=== PATIENT | female | born 1990 | race Caucasian/White ===

== ENCOUNTER 2022-12-21 11:57 | Inpatient (IN) | payer MEDICAID, OTHER ==
[2022-12-21] MEDS ORDERED: MAG HYDROX/AL HYDROX/SIMETH 30 ML CUP PO PRN (12:15)
[2022-12-21] MEDS ORDERED: MAGNESIUM HYDROXIDE 2,400 MG/10 ML CUP PO PRN (12:15)
[2022-12-21] MEDS ORDERED: OLANZapine 10 MG VIAL IM PRN (12:27)
[2022-12-21] MEDS ORDERED: hydrOXYzine HCL 50 MG/ML 1 ML VIAL IM PRN (12:28)
[2022-12-21] MEDS: hydrOXYzine pamoate 25 MG CAP PO PRN ×2 (15:41→20:46)
[2022-12-21] MEDS: chlordiazePOXIDE 25 MG CAP PO PRN ×2 (15:41→23:25)
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
[2022-12-21] MEDS: NICOTINE 14MG/24HR PATCH TRANSDERM SCH (16:48)
[2022-12-21] MEDS: risperiDONE 2 MG TAB PO SCH (20:47)
[2022-12-22] MEDS ORDERED: chlordiazePOXIDE 25 MG CAP PO PRN ×2 (01:47)
--- NOTE | 2022-12-22 01:52 | P.MDCNMH ---
History of Present Illness H&P Date: 12/21/22 Chief Complaint: medical evaluation 32 year old female with alcohol dependance she is coming in for evaluation due to suicidal ideation , she admits to alcohol dependance and abuse, last drink was before coming to the hospital yesterday. she reports feeling shaky and going through alcohol withdrawal , she drinks a pint of liquor daily . she reports history of depression and anxiety. she lives with her boyfriend at a motel , and spends the whole day drinking as she has nothing else to do . he denies any medical concerns , no fever, chills, cough, shortness of breath, chest pain , nausea vomiting, or abd pain , denies any changes in bowel or urinary habits. she admits to tobacco smoking ,denies drugs Review of Systems Pertinent positives as noted in HPI. All other systems were reviewed and are negative Past Medical History Past Medical History: No Reported History History of Any Multi-Drug Resistant Organisms: None Reported Additional Past Surgical History / Comment(s): pt states she has surgery by her navel for "twisted ovaries" Past Anesthesia/Blood Transfusion Reactions: No Reported Reaction Smoking Status: Current every day smoker Medications and Allergies Allergies Allergy/AdvReac Type Severity Reaction Status Date / Time No Known Allergies Allergy Verified 12/21/22 12:07 Physical Exam Vitals: Vital Signs Temp Pulse Resp BP Pulse Ox 12/21/22 14:28 97.7 F 88 18 138/78 99 Intake and Output 12/21/22 12/21/22 12/22/22 14:59 22:59 06:59 Other: Weight 80.739 kg Constitutional: No acute distress, conversant, Eyes: Anicteric sclerae, moist conjunctiva, Pupils equal round reactive to light ENMT: NC/AT Oropharynx clear, no erythema, or exudates Neck: Supple, no masses, or JVD No carotid bruits No thyromegaly Lungs: Clear to auscultation Clear to percussion Normal respiratory effort, no accessory muscle use Cardiovascular: Heart regular in rate and rhythm, No murmurs, gallops, or rubs No peripheral edema Abdominal: Soft Nontender, no guarding, rebound or rigidity Abdomen moving with respiration Normoactive bowel sounds No palpable mass Skin: Normal temperature, tone, texture, turgor Extremities: No digital cyanosis No clubbing Pedal pulses intact and symmetrical Radial pulses intact and symmetrical No calf tenderness Psychiatric: Alert and oriented to person, place and time Neuro Muscles Strength 5/5 in all 4 extremities Sensation to light touch grossly present throughout Cranial nerves II-XII grossly intact Lymphatics: no palpable cervical or supraclavicular lymph nodes Cranial Nerve Examination - Cranial Nerves Cranial Nerve II- Optic: Intact Cranial Nerve III- Oculomotor: Intact Cranial Nerve IV- Trochlear: Intact Cranial Nerve V- Trigeminal: Intact Cranial Nerve - Abducens: Intact Cranial Nerve VII- Facial: Intact Cranial Nerve VIII- Auditory: Intact Cranial Nerve IX- Glossopharyngeal: Intact Cranial Nerve X- Vagus: Intact Cranial Nerve XI- Accessory: Intact Cranial Nerve XII- Hypoglossal: Intact Assessment and Plan Assessment: alcohol dependance alcohol withdrawal librium per CIWA thiamine daily po alcohol withdrawal precautions depression and suicidal ideation management per psych follow up blood work thank you for this consultation
[2022-12-22] MEDS: hydrOXYzine pamoate 25 MG CAP PO PRN ×2 (07:46→20:22)
[2022-12-22] MEDS: THIAMINE 100 MG TAB PO SCH (07:47)
[2022-12-22] MEDS: FOLIC ACID 1 MG TAB PO SCH (07:47)
[2022-12-22] MEDS: OLANZapine 5 MG TAB PO PRN (07:47)
[2022-12-22 07:53] LABS: Basophils # (A) 0.1 k/uL (0-0.2); Basophils % (A) 1 %; Eosinophils # (A) 0.2 k/uL (0-0.7); Eosinophils % (A) 4 %; HCT 39.6 % (34.0-46.0); Lymphocytes # (A) 1.3 k/uL (1.0-4.8); Lymphocytes % (A) 26 %; MCH 34.9 pg (25.0-35.0); MCV 105.8 fL (80.0-100.0); Macrocytosis Slight; Mean Platelet Volume 6.8; Monocytes # (A) 0.7 k/uL (0-1.0); Monocytes % (A) 13 %; Neutrophils # (A) 2.7 k/uL (1.3-7.7); Neutrophils % (A) 54 %; Platelet Count 299 k/uL (150-450); RBC 3.74 m/uL (3.80-5.40); RDW 12.1 % (11.5-15.5)
[2022-12-22 08:39] LABS: ALT 22 U/L (4-34); AST 31 U/L (14-36); African American GFR (CKD) >90 (>60 ml/min/1.73 sqM); Albumin 3.5 g/dL (3.5-5.0); Alkaline Phosphatase 51 U/L (38-126); Anion Gap 4 mmol/L; Blood Urea Nitrogen 13 mg/dL (7-17); Calcium 8.7 mg/dL (8.4-10.2); Carbon Dioxide 28 mmol/L (22-30); Chloride 104 mmol/L (98-107); Glucose 79 mg/dL (74-99); Non-African American GFR(CKD) >90 (>60 ml/min/1.73 sqM); Potassium 4.4 mmol/L (3.5-5.1); Sodium 136 mmol/L (137-145); Total Bilirubin 0.7 mg/dL (0.2-1.3); Total Protein 6.2 g/dL (6.3-8.2)
[2022-12-22] MEDS ORDERED: NICOTINE 14MG/24HR PATCH TRANSDERM SCH (09:00)
[2022-12-22] MEDS: NICOTINE 14MG/24HR PATCH TRANSDERM SCH (09:49)
[2022-12-22] MEDS: chlordiazePOXIDE 25 MG CAP PO PRN ×4 (10:50→22:29)
--- NOTE | 2022-12-22 11:07 | P.PN ---
Progress Note - Text Progress Note Date: 12/22/22 S&O: Patient was seen in rounds. She said she took her medicine yesterday which is risperidone 2 mg at bedtime and feels better today. She said she had to take some sleeping medicine last night. She said she has some muscle pain on her left thigh and thinks it is from sleeping on one side for long time. She denies any adverse effect from Risperdal. She said her boyfriend is going to [place] today to visit his grandparents for the weekend. She does not have any particular complaint or concerns. She socializes with other patients and attends groups. This is a white ambulatory female with good hygiene. She is polite fairly cheerful and cooperative. Does not have any psychomotor agitation or retardation. Speech is spontaneous relevant and goal-directed. Mood is fairly cheerful and affect is appropriate. Denies hallucinations, delusional thinking, suicidal and homicidal thoughts. Her sensorium is clear. A&P: Continue risperidone 2 mg at bedtime and other when necessary medications, continue therapies.
[2022-12-22] MEDS: NICOTINE GUM (POLACRILEX) 2 MG GUM BUCCAL PRN (17:23)
[2022-12-22] MEDS: risperiDONE 2 MG TAB PO SCH (20:22)
[2022-12-22] MEDS: ACETAMINOPHEN TAB 325 MG TAB PO PRN (22:29)
[2022-12-23] MEDS: hydrOXYzine pamoate 25 MG CAP PO PRN ×2 (00:44→20:55)
[2022-12-23] MEDS: chlordiazePOXIDE 25 MG CAP PO PRN ×4 (00:44→23:58)
[2022-12-23] MEDS: OLANZapine 5 MG TAB PO PRN ×2 (04:24→23:59)
[2022-12-23] MEDS: NICOTINE 14MG/24HR PATCH TRANSDERM SCH (06:08)
[2022-12-23] MEDS: FOLIC ACID 1 MG TAB PO SCH (11:07)
[2022-12-23] MEDS: THIAMINE 100 MG TAB PO SCH (11:48)
--- NOTE | 2022-12-23 15:39 | P.PN ---
Subjective Progress Note Date: 12/23/22 Principal diagnosis: Bipolar 2 Polysubstance use Subjective the patient says that there are many people in her family who have clear manic episodes and depression. She says she herself has episodes that are manic with decreased need for sleep increased talking impulsive project beginning excessive inappropriate spending and talk etc. She is on risperidone and tolerated it well as it might be slowing her down slightly. She has not taken other mood stabilizers in the past and is only begun to consider that that is what she is dealing she has a sister who is clearly bipolar. Objective she came readily and was serious cooperative and was feeling somewhat claustrophobic 1 treatment just step outside for a few minutes and then come back. She is intelligent alert good eye contact asked good questions. She denied any psychotic symptoms no illusions delusions or hallucinations. Denies active suicidality. Assessment patient is calming down and stabilizing benefiting from the risperidone no signs of akathisia. Plan: No change in medicine I told her in the long run she might want to try something like Geodon because restaurant hasn't incidence of prolactinemia leavi ng U with low motivation and a higher incidence of tardive dyskinesia which I educated her on. I told her it would works fast to get her stable and she can work with her outpatient doctor at finding the best balance for her. I reviewed all the medicines relevant to bipolar and how one would decide what to try. Also reviewed the importance of healthy living and the danger of using any alcohol. Objective - Vital Signs Vital signs: Vital Signs Temp 98 F 12/23/22 14:35 Pulse 103 H 12/23/22 14:35 Resp 16 12/23/22 14:35 BP 109/55 12/23/22 14:35 Pulse Ox 98 12/23/22 00:46 FiO2 - Labs CBC & Chem 7: 12/22/22 07:29 12/22/22 07:29
[2022-12-23] MEDS: ACETAMINOPHEN TAB 325 MG TAB PO PRN (16:37)
[2022-12-23] MEDS: risperiDONE 2 MG TAB PO SCH (20:55)
[2022-12-24] VITALS: TEMP 98
[2022-12-24] MEDS: NICOTINE 14MG/24HR PATCH TRANSDERM SCH (08:45)
[2022-12-24] MEDS: FOLIC ACID 1 MG TAB PO SCH (08:45)
[2022-12-24] MEDS: THIAMINE 100 MG TAB PO SCH (08:45)
[2022-12-24 08:48] VITALS: RESP 18
--- NOTE | 2022-12-24 11:08 | P.PN ---
Subjective Progress Note Date: 12/24/22 Principal diagnosis: Bipolar 2 Polysubstance use Subjective: The patient says that she slept well last night feels that the risperidone is helping her calm down. Yesterday we reviewed all the medicines relative to dealing with bipolar 2 and she had some questions about that and in the long run would like to get on medicines that had a lower incidence of tardive dyskinesia She has not taken other mood stabilizers in the past and is only begun to consider that that is what she is dealing she has a sister who is clearly bipolar. Objective : I did not see any evidence of tardive dyskinesia at this time. she came readily and was serious, cooperative. She is intelligent alert good eye contact asked good questions. She denied any psychotic symptoms no illusions delusions or hallucinations. Denies active suicidality. She is alert cooperative taking good notes asking good questions good abstract thought. Assessment: The patient is calming down and stabilizing benefiting from the risperidone no signs of akathisia or tardive dyskinesia. Plan: No change in medicine I told her in the long run with her outpatient doctor, she might want to try something like Geodon because restaurant hasn't incidence of prolactinemia leaving U with low motivation and a higher incidence of tardive dyskinesia which I educated her on. I told her the risperidone would works fast to get her stable and she can work with her outpatient doctor at finding the best balance for her. I reviewed all the medicines relevant to bipolar and how one would decide what to try. Also reviewed the importance of healthy living and the danger of using any alcohol. Objective - Vital Signs Vital signs: Vital Signs Temp 98.0 F 12/23/22 23:59 Pulse 107 H 12/24/22 08:48 Resp 18 12/24/22 08:48 BP 138/88 12/24/22 08:48 Pulse Ox 99 12/23/22 23:59 FiO2 Intake & Output 12/23/22 12/24/22 12/24/22 18:59 06:59 18:59 Weight 81 kg - Labs CBC & Chem 7: 12/22/22 07:29 12/22/22 07:29
[2022-12-24] MEDS: chlordiazePOXIDE 25 MG CAP PO PRN ×2 (11:31→18:28)
[2022-12-24 18:30] VITALS: BP 135/82; PULSE 88
[2022-12-24] MEDS: hydrOXYzine pamoate 25 MG CAP PO PRN (20:38)
[2022-12-24] MEDS: risperiDONE 2 MG TAB PO SCH (20:38)
[2022-12-24] MEDS: NICOTINE GUM (POLACRILEX) 2 MG GUM BUCCAL PRN (20:39)
[2022-12-25] MEDS: THIAMINE 100 MG TAB PO SCH (08:27)
[2022-12-25] MEDS: FOLIC ACID 1 MG TAB PO SCH (08:27)
[2022-12-25] MEDS: NICOTINE 14MG/24HR PATCH TRANSDERM SCH (08:27)
--- NOTE | 2022-12-25 11:40 | P.DS ---
Providers Date of admission: 12/21/22 14:17 Expected date of discharge: 12/25/22 Attending physician: Paul Dinero MD Consults: 12/21/22 12:25 Consult Physician Routine Consulting Provider: Ok Aquino Consult Reason/Comments: history and physical Do you want consulting provider notified?: Yes Primary care physician: Stated None - Discharge Diagnosis(es) (1) Alcohol dependence with alcohol-induced mood disorder Current Visit: Yes Status: Acute Priority: High (2) Cannabis use disorder, moderate, dependence Current Visit: Yes Status: Acute Priority: High (3) Mild stimulant use disorder Current Visit: Yes Status: Acute Priority: Medium (4) Personality disorder, unspecified Current Visit: Yes Status: Acute Priority: High Hospital Course: Patient had her psychiatric H&P done by me on 12/21/2022 and general physical examination done by Dr.Aiman Newton Garsia on the same day. After psychiatric H&P she was started on risperidone 2 mg at bedtime for possible more stabilization. She was continued on alcohol withdrawal protocol using benzodiazepines and also received thiamine and folic acid. The next morning she said she was feeling better her mood has been stable did not feel depressed or anxious and had slept good the night before. She continued to attend therapy sessions, interacted with peers and staff and showed very good improvement in her mental health condition. Today she said she is ready to go home and be with her boyfriend, seek drug and alcohol counseling and learned coping skills and try to get a job to keep herself busy. Her medications especially Risperdal was discussed with her and it was agreed to discontinue it since people with mood disorder don't get better overnight with one dose of Risperdal and it was felt the change in milieu and her attending groups and interacting with others had helped her along with not drinking. Plan - Discharge Summary Discharge Rx Participant: No Care Plan Goals (MU): Seek alcohol/drug counselling and coping skills.
== END 2022-12-25 12:21 | disposition home or self-care (01) | DRG 775 ==
LOC: 3MHU 14:17
PROVIDERS: ADMIT Psychiatry & Neurology Psychiatry; ATTEND Psychiatry & Neurology Psychiatry
DX: F10.24 Alcohol dependence with alcohol-induced mood disorder (principal); F10.229 Alcohol dependence with intoxication, unspecified; F10.239 Alcohol dependence with withdrawal, unspecified; Y90.8 Blood alcohol level of 240 mg/100 ml or more; F12.20 Cannabis dependence, uncomplicated; F15.10 Other stimulant abuse, uncomplicated; F41.9 Anxiety disorder, unspecified; F60.9 Personality disorder, unspecified; F31.60 Bipolar disorder, current episode mixed, unspecified; D43.2 Neoplasm of uncertain behavior of brain, unspecified; F40.240 Claustrophobia; R45.851 Suicidal ideations; V49.3XXD Car occupant (driver) (passenger) injured in unspecified nontraffic accident, subsequent encounter; F17.200 Nicotine dependence, unspecified, uncomplicated; M79.18 Myalgia, other site; Z55.8 Other problems related to education and literacy; Z28.310 Unvaccinated for COVID-19
CPT/HCPCS: 80053; 85025